=== PATIENT | male | born 1950 | race Caucasian/White ===

== ENCOUNTER 2019-11-09 14:01 | Emergency (ER) | payer MEDICARE, BC ==
[2019-11-09] MEDS ORDERED: Doxycycline 100 MG Cap PO ONE ×2 (14:02→14:18)
[2019-11-09 14:12] VITALS: BP 140/81; PULSE 62
[2019-11-09] MEDS ORDERED: Lidocaine 1% 30 ML SDV INJECT ONE (14:19)
[2019-11-09] MEDS ORDERED: Doxycycline 100 MG Cap ONE (14:35)
--- NOTE | 2019-11-09 15:00 | EDM.PDOC ---
Scribed by Gerri Stiles 11/09/19 [id number] for Georgiana Ellington NP ED HPI GENERAL MEDICAL PROBLEM - General Chief Complaint: Skin Complaint Stated Complaint: TICK BITE? Time Seen by Provider: 11/09/19 14:11 Source of Information: Reports: Patient, RN, RN Notes Reviewed History Limitations: Reports: No Limitations - History of Present Illness INITIAL COMMENTS - FREE TEXT/NARRATIVE: Patient presents to ER with possible tick bite. He noticed an area to the right inner thigh on Saturday. States there was not a tick attached at that time. He has found ticks in his clothes. No fever, chills, nausea, vomiting, diarrhea, chest pain or shortness of breath. Onset Date: 11/06/19 Duration: Getting Worse Location: Reports: Other (right inner thigh) Quality: Reports: Ache Severity: Moderate Improves with: Reports: None Worsens with: Reports: None Associated Symptoms: Reports: No Other Symptoms - Related Data Allergies Allergy/AdvReac Type Severity Reaction Status Date / Time No Known Allergies Allergy Verified 11/09/19 14:06 Home Meds: Home Meds Aspirin [Gracie Chewable] 81 mg PO DAILY 06/06/13 [History] Ezetimibe [Zetia] 10 mg PO DAILY 06/06/13 [History] Metoprolol Succinate [Toprol Xl] 100 mg PO DAILY 06/06/13 [History] Sildenafil [Viagra] 50 mg PO 06/06/13 [History] metFORMIN [metFORMIN XR] 500 mg PO DAILY 06/06/13 [History] Simvastatin 10 mg PO DAILY 12/18/15 [History] Spironolactone 25 mg PO DAILY 12/18/15 [History] Sacubitril/Valsartan [Entresto 49 mg-51 mg Tablet] 1 each PO BID 11/09/19 [ History] Past Medical History HEENT History: Reports: Impaired Vision Cardiovascular History: Reports: Automatic Implantable Cardioverter Defibrillators, Heart Failure, High Cholesterol, Hypertension, Pacemaker Endocrine/Metabolic History: Reports: Diabetes, Type II - Past Surgical History Musculoskeletal Surgical History: Reports: Knee Replacement ED ROS GENERAL - Review of Systems Review Of Systems: Comprehensive ROS is negative, except as noted in HPI. ED EXAM, SKIN/RASH Exam: See Below Exam Limited By: No Limitations General Appearance: Alert, WD/WN, No Apparent Distress Eye Exam: Bilateral Eye: EOMI, Normal Inspection, PERRL Ears: Normal External Exam, Normal Canal, Hearing Grossly Normal, Normal TMs Nose: Normal Inspection, Normal Mucosa, No Blood Throat/Mouth: Normal Inspection, Normal Lips, Normal Teeth, Normal Gums, Normal Oropharynx, Normal Voice, No Airway Compromise Head: Atraumatic, Normocephalic Neck: Normal Inspection, Supple, Non-Tender, Full Range of Motion Respiratory/Chest: No Respiratory Distress, Lungs Clear, Normal Breath Sounds, No Accessory Muscle Use, Chest Non-Tender Cardiovascular: Normal Peripheral Pulses, Regular Rate, Rhythm, No Edema, No Gallop, No JVD, No Murmur, No Rub GI/Abdominal: Normal Bowel Sounds, Soft, Non-Tender, No Organomegaly, No Distention, No Abnormal Bruit, No Mass (Male) Exam: Deferred Rectal (Males) Exam: Deferred Back Exam: Normal Inspection, Full Range of Motion, NT Extremities: Normal Inspection, Normal Range of Motion, Non-Tender, No Pedal Edema, Normal Capillary Refill Neurological: Alert, Oriented, CN II-XII Intact, Normal Cognition, Normal Gait, Normal Reflexes, No Motor/Sensory Deficits Psychiatric: Normal Affect, Normal Mood Skin: Warm, Dry, Erythema (right upper, inner thigh), Increased Warmth (abscess right upper, inner thigh) Location, Skin: Lower Extremity, Left Associated features: Warmth, Tenderness, Swelling, Induration Lymphatic: No Adenopathy ED SKIN PROCEDURES - I&D Site: Right upper, inner thigh Skin Prep: Chlorhexidine (Hibiciens) Local Anesthesia: Lidocaine: 1% Plain Local Anesthetic Volume: 4cc Area Incised With: Needle (18g) Drainage: Purulent, Bloody, Moderate Amount Probed to Break Up Loculations: Yes Packed With: None Sterile Dressinx4(s) Complications: No Course - Vital Signs Last Recorded V/S: Last Vital Signs Temp 97.8 F 11/09/19 14:08 Pulse 62 11/09/19 14:08 Resp 12 11/09/19 14:08 BP 140/81 11/09/19 14:08 Pulse Ox 98 11/09/19 14:08 - Orders/Labs/Meds Meds: Medications Discontinued Medications Generic Name Dose Route Start Last Admin Trade Name Freq PRN Reason Stop Dose Admin Doxycycline Hyclate 100 mg 11/09/19 14:18 11/09/19 14:23 Vibramycin PO 11/09/19 14:19 100 mg ONETIME ONE Administration Doxycycline Hyclate Confirm 11/09/19 14:35 11/09/19 14:39 Vibramycin Administered 11/09/19 14:36 Not Given Dose 100 mg .ROUTE .STK-MED ONE Lidocaine HCl 30 ml 11/09/19 14:19 11/09/19 14:23 Xylocaine-Mpf 1% INJECT 11/09/19 14:20 30 ml ONETIME ONE Administration Departure - Departure Time of Disposition: 14:44 Disposition: Home, Self-Care 01 Condition: Good Clinical Impression: Abscess Tick bite Qualifiers: Encounter type: initial encounter Qualified Code(s): W57.XXXA - Bitten or stung by nonvenomous insect and other nonvenomous arthropods, initial encounter - Discharge Information *PRESCRIPTION DRUG MONITORING PROGRAM REVIEWED*: No *COPY OF PRESCRIPTION DRUG MONITORING REPORT IN PATIENT OUSMANE: No Instructions: Tick Bite Information, Adult, [id number], Skin Abscess, Easy-to -Read Forms: ED Department Discharge Additional Instructions: RX: Doxycycline May use Tylenol as directed for pain Follow up with your primary care facility if no improvement Sepsis Event Note - Evaluation Sepsis Screening Result: No Definite Risk - Focused Exam Vital Signs: Vital Signs Temp Pulse Resp BP Pulse Ox 11/09/19 14:08 97.8 F 62 12 140/81 98 Date Exam was Performed: 11/09/19 Time Exam was Performed: 14:58 I have read and agree with the documentation that has been completed regarding this visit. By signing this record, I attest that the documentation was completed in my physical presence and is an accurate record of the encounter.
== END 2019-11-09 14:47 | disposition home or self-care (01) ==
LOC: DL.ED 14:01
DX: S70.361A Insect bite (nonvenomous), right thigh, initial encounter (principal); L02.415 Cutaneous abscess of right lower limb; I11.0 Hypertensive heart disease with heart failure; I50.9 Heart failure, unspecified; E11.9 Type 2 diabetes mellitus without complications; E78.00 Pure hypercholesterolemia, unspecified; Z95.0 Presence of cardiac pacemaker; Z79.82 Long term (current) use of aspirin; Z79.84 Long term (current) use of oral hypoglycemic drugs; Z79.899 Other long term (current) drug therapy; W57.XXXA Bitten or stung by nonvenomous insect and other nonvenomous arthropods, initial encounter
CPT/HCPCS: 10060; 87070; 99283; A9270; J2001